=== PATIENT | female | born 1985 | race Two or more races ===

== ENCOUNTER 2018-06-02 19:54 | Emergency (ER) | payer OTHER ==
[~2018-06-02] VITALS: Ht 162.6 cm; Wt 71.2 kg
[~2018-06-02 19:54] MED LIST: LOP100 PO
[2018-06-02 20:08] VITALS: Ht 162.6 cm; Wt 71.2 kg
[2018-06-02 21:17] LABS: BASOPHIL % 0.2 % (0-2); PLATELET COUNT 250 x10^3mcL (130-400); RED CELL DISTRIBUTION WIDTH 14.2 % (11.5-14.5)
[2018-06-02 21:26] LABS: ALBUMIN 3.4 g/dL (3.4-5.0); ALKALINE PHOSPHATASE 83 U/L (46-116); ALT/SGPT 61 U/L (14-59); AST/SGOT 40 U/L (15-37); BILIRUBIN TOTAL 0.6 mg/dL (0.20-1.00); CALCIUM 8.1 mg/dL (8.5-10.1); CARBON DIOXIDE 31.9 mmol/L (21-32); CHLORIDE SERUM 101 mmol/L (98-107); CREATININE SERUM 0.6 mg/dL (0.6-1.0); GFR1 > 60 mL/min; GLUCOSE SERUM 89 mg/dL (74-106); SODIUM SERUM 141 mmol/L (136-145); TOTAL PROTEIN, SERUM 7.5 g/dL (6.4-8.2)
[2018-06-02 21:29] LABS: POTASSIUM SERUM 2.8 mmol/L (3.5-5.1)
[2018-06-02 23:07] VITALS: BP 140/85
== END 2018-06-02 23:07 | disposition home or self-care (01) ==
LOC: ED 19:54
PROVIDERS: Emergency Medicine
DX: E87.6 Hypokalemia (principal); R07.89 Other chest pain; I10 Essential (primary) hypertension
CPT/HCPCS: 36415

== ENCOUNTER 2018-07-05 20:16 | Emergency (ER) | payer OTHER ==
[~2018-07-05] VITALS: Ht 162.6 cm; Wt 65.8 kg
[2018-07-05 20:37] VITALS: Ht 162.6 cm; Wt 65.8 kg
[2018-07-05 22:35] VITALS: BP 146/100
== END 2018-07-05 22:35 | disposition home or self-care (01) ==
LOC: ED 20:16
DX: S46.911A Strain of unspecified muscle, fascia and tendon at shoulder and upper arm level, right arm, initial encounter (principal); I10 Essential (primary) hypertension; V49.9XXA Car occupant (driver) (passenger) injured in unspecified traffic accident, initial encounter; Y93.I9 Activity, other involving external motion; Y92.488 Other paved roadways as the place of occurrence of the external cause; Y99.8 Other external cause status
CPT/HCPCS: J1885

== ENCOUNTER 2018-11-03 12:11 | Emergency (ER) | payer OTHER ==
[~2018-11-03] VITALS: Ht 162.6 cm; Wt 72.6 kg
[2018-11-03 14:02] VITALS: BP 130/88
== END 2018-11-03 14:02 | disposition home or self-care (01) ==
LOC: ED 12:11
DX: L03.317 Cellulitis of buttock (principal); I10 Essential (primary) hypertension
CPT/HCPCS: J0696

== ENCOUNTER 2019-02-21 08:38 | Emergency (ER) | payer OTHER ==
[~2019-02-21] VITALS: Ht 165.1 cm; Wt 74.8 kg
[2019-02-21 09:13] VITALS: Ht 165.1 cm; Wt 74.8 kg
[2019-02-21 11:41] VITALS: BP 135/88
== END 2019-02-21 11:41 | disposition home or self-care (01) ==
LOC: ED 08:38
DX: J06.9 Acute upper respiratory infection, unspecified (principal); I10 Essential (primary) hypertension

== ENCOUNTER 2019-05-23 02:14 | Emergency (ER) | payer OTHER ==
[~2019-05-23] VITALS: Ht 165.1 cm; Wt 76.7 kg
[2019-05-23 02:17] VITALS: Ht 165.1 cm; Wt 76.7 kg
[2019-05-23 04:25] LABS: BASOPHIL % 0.5 % (0-2); PLATELET COUNT 301 x10^3mcL (130-400); RED CELL DISTRIBUTION WIDTH 14.2 % (11.5-14.5)
[2019-05-23 04:33] LABS: AMPHETAMINE QUAL UR NONE DETECTED (See below)
[2019-05-23 04:39] LABS: ALBUMIN 3.9 g/dL (3.4-5.0); ALKALINE PHOSPHATASE 77 U/L (46-116); ALT/SGPT 26 U/L (14-59); AST/SGOT 16 U/L (15-37); BILIRUBIN TOTAL 0.53 mg/dL (0.20-1.00); CALCIUM 8.9 mg/dL (8.5-10.1); CARBON DIOXIDE 29.8 mmol/L (21-32); CHLORIDE SERUM 103 mmol/L (98-107); CREATININE SERUM 0.6 mg/dL (0.6-1.0); GFR1 > 60 mL/min; GLUCOSE SERUM 103 mg/dL (74-106); MAGNESIUM 2.3 mg/dL (1.8-2.4); SODIUM SERUM 143 mmol/L (136-145); TRIGLYCERIDES 108 mg/dL (<150)
[2019-05-23 04:40] LABS: CHOLESTEROL 233 mg/dL (<200); CHOLESTEROL/HDL RATIO 3.1; HDL CHOLESTEROL 74 mg/dL (40-60); TOTAL PROTEIN, SERUM 8.4 g/dL (6.4-8.2)
[2019-05-23 04:41] LABS: POTASSIUM SERUM 2.4 mmol/L (3.5-5.1)
[2019-05-23 04:45] LABS: T3 TOTAL 1.28 ng/mL
[2019-05-23 04:46] LABS: FREE T4 1.05 ng/dL (0.76-1.46); FREE THYROXINE INDEX 3.4 ug/dL (1.4-4.5); T4(THYROXINE) 10.3 ug/dL (4.7-13.3)
[2019-05-23 05:50] VITALS: BP 116/85
== END 2019-05-23 05:50 | disposition home or self-care (01) ==
LOC: ED 02:14
PROVIDERS: Emergency Medicine
DX: E87.6 Hypokalemia (principal); R00.2 Palpitations; I10 Essential (primary) hypertension
CPT/HCPCS: 36415; 84439; Q0092

== ENCOUNTER 2019-05-30 12:20 | Inpatient (IN) | payer OTHER ==
[~2019-05-30] VITALS: Ht 165.1 cm; Wt 75.4 kg
[2019-05-30 12:33] VITALS: Ht 165.1 cm; Wt 75.4 kg
--- NOTE | 2019-05-30 12:34 | NUR ---
EKG IN PROGRESS
--- NOTE | 2019-05-30 12:47 | NUR ---
PT BROUGHT IN BY MOTHER WITH C/O CP. PT HAS HX OF HIGH BP. AT BEDSIDE PT IS AAOX4. RESPS E/U. SKIN IS PINK, WARM AND DRY. PERRLA. PT PLACED ON MONITOR. BED RAILS UP X1 FOR SAFETY. PT ORIENTED TO ROOM, USE OF CALL LEWIS AND BED IN LOWEST POSITION. PT IS CALM AND COOPERATIVE. PT AMBULATED FROM LOBBY TO ED WITH STEADY GAIT. PT AWAITING MSE.
--- NOTE | 2019-05-30 13:45 | NUR ---
PT RESTING IN POSITION OF COMFORT. NO ACUTE STRESS NOTED AT THIS MOMENT. RESPS E/U, SKIN IS PINK, WARM AND DRY. PT CALM AND COOPERATIVE.
[2019-05-30 13:47] LABS: ALBUMIN 3.8 g/dL (3.4-5.0); ALKALINE PHOSPHATASE 66 U/L (46-116); ALT/SGPT 24 U/L (14-59); AST/SGOT 15 U/L (15-37); BILIRUBIN TOTAL 0.7 mg/dL (0.20-1.00); CALCIUM 8.8 mg/dL (8.5-10.1); CARBON DIOXIDE 32.4 mmol/L (21-32); CHLORIDE SERUM 105 mmol/L (98-107); CREATININE SERUM 0.6 mg/dL (0.6-1.0); GFR1 > 60 mL/min; GLUCOSE SERUM 122 mg/dL (74-106); SODIUM SERUM 141 mmol/L (136-145); TOTAL PROTEIN, SERUM 7.8 g/dL (6.4-8.2)
[2019-05-30 13:49] LABS: POTASSIUM SERUM 2.4 mmol/L (3.5-5.1)
[2019-05-30 13:53] LABS: BASOPHIL % 0.4 % (0-2); PLATELET COUNT 283 x10^3mcL (130-400); RED CELL DISTRIBUTION WIDTH 14.1 % (11.5-14.5)
[2019-05-30 15:21] LABS: MAGNESIUM 2.3 mg/dL (1.8-2.4); PHOSPHOROUS 2.4 mg/dL (2.5-4.9)
[2019-05-30 15:22] LABS: CHOLESTEROL/HDL RATIO 3.1
--- NOTE | 2019-05-30 15:50 | NUR ---
HAND-OFF REPORT TO RN BRISEYDA TO ASSUME CARE FOR PT.
--- NOTE | 2019-05-30 16:26 | NUR ---
RECEIVED PATIENT FROM ED VIA [employer]. PATIENT IS STABLE, ALER T AND ORIENTED X4. NO APPARENT SIGNS OF PAIN, SOB, OR RESPORATORY DISTRESS. PATIENT DENIES CHEST PAIN AT THIS TIME. PATIENT STATES INTERMITENT CHEST PAIN, NONE AT THIS TIME. IV TO RIGHT AC INFUSING WELL NO EDEMA OR ERYTHEMA NOTED AT SITE. PATIENT ORIENTED TO ROOM. QUESTIONS AND CONCERNS ADDRESSED. SAFETY PRECUTIONS IN PLACE.
--- NOTE | 2019-05-30 16:34 | NUR ---
MD CORDERO AT BEDSIDE.
[2019-05-30 16:58] VITALS: BP 136/90
--- NOTE | 2019-05-30 18:57 | NUR ---
PATIENT IS STABLE NO APPARENT SIGNS OF PAIN, SOB, OR RESPIRATORY DISTRESS. PATIENT RESTING COMFORTABLY IN BED. ON THE PHONE. DENIES CHEST PAIN, OR PRESSURE. IV TO RIGHT AC INFUSING WELL. NO EDEMA OR ERYTHEMA NOTED AT SITE. CALL LIGHT AND PHONE WITHIN REACH. BED IN LOW POSITION. QUESTIONS AND CONCERNS ADDRESSED. SAFETY PRECAUTIONS IN PLACE. WILL ENDORSE CARE TO PUBLIC RELATIONS ACCOUNT EXECUTIVE NURSE.
--- NOTE | 2019-05-30 19:20 | NUR ---
RECIEVED PT FROM DAY SHIFT RN. PT IS ALERT AND ORIENTED TO PERSON PLACE TIME AND SITUATION AND IS CURRENTLY RESTING IN BED AND ABLE TO FOLLOW COMMANDS. PT DENIES CHEST PAIN OR SHORTNESS OF BREATH ON ROOM AIR AT THIS TIME. TELE #[address] BREATHING IS EVEN AND UNLABORED. PT IS AMBULATORY AND IS ABLE TO USE THE RESTROOM INDEPENDENTLY. THERE IS A RAC IV 24G THAT IS CLEAN DRY AND INTACT. K RIDER COMPLETED. NS RUNNING AT 100M/HR. INSTRUCTED PT TO CALL IF SHE EXPERIENCES SHORTNESS OF BREATH OR CHEST PAIN. SAFETY MEASURES ARE IN PLACE. BED IS IN THE LOWEST POSITION. CALL LIGHT IS WITHIN REACH. WILL CONTINUE TO MONITOR.
--- NOTE | 2019-05-30 19:25 | NUR ---
ENDORSED CARE TO NIGHT SHIF NURSE JACY.
[2019-05-30 21:20] VITALS: BP 136/94
--- NOTE | 2019-05-31 02:04 | NUR ---
PT RESTING IN BED WITH EYES CLOSED. NO SIGNIFICANT CHANGES NOTED. NO DISTRESS NOTED. BREATHING EVEN AND UNLABORED.WILL CONTINUE TO MONITOR.
--- NOTE | 2019-05-31 05:10 | NUR ---
PT SLEPT THROUGHOUT THE NIGHT. NO COMPLAINTS OF PAIN, SHORTNESS OF BREATH, OR CHEST PAIN. PT CURRENTLY RESTING IN BED WITH EYES CLOSED NO USE OF ACCESSORY MUSCLES OR LABORED BREATHING. NO SIGNIFICANT CHANGES NOTED THROUGHOUT THE SHIFT. SAFETY MEASURES ARE IN PLACE. CALL LIGHT IS WITHIN REACH. WILL ENDORSE CONTINUITY OF CARE TO THE DAY SHIFT RN.
[2019-05-31 05:52] VITALS: BP 141/98
[2019-05-31 06:12] LABS: BASOPHIL % 0.4 % (0-2); PLATELET COUNT 260 x10^3mcL (130-400); RED CELL DISTRIBUTION WIDTH 14.5 % (11.5-14.5)
[2019-05-31 06:19] LABS: CALCIUM 8.4 mg/dL (8.5-10.1); CARBON DIOXIDE 29.5 mmol/L (21-32); CHLORIDE SERUM 108 mmol/L (98-107); CREATININE SERUM 0.5 mg/dL (0.6-1.0); GFR1 > 60 mL/min; GLUCOSE SERUM 91 mg/dL (74-106); MAGNESIUM 2.1 mg/dL (1.8-2.4); PHOSPHOROUS 3.4 mg/dL (2.5-4.9); POTASSIUM SERUM 3.3 mmol/L (3.5-5.1); SODIUM SERUM 144 mmol/L (136-145)
--- NOTE | 2019-05-31 07:05 | NUR ---
RECEIVED PT FROM NIGHT NURSE. PT IS LAYING DOWN IN BED WITH HOB UP. PT LOOKS TO BE IN NO ACUTE DISTRESS AND DENIES ANY PAIN AT THIS TIME. IV SITE PATENT WITH NO SIGNS OF ERYTHEMA OR SWELLING WITH IV FLUIDS INFUSING. TELE MONITOR 24 PRESENT. BED IN LOWEST POSITION, CALL LIGHT WITHIN REACH. WILL CONTINUE TO MONITOR.
[2019-05-31 08:34] VITALS: BP 133/90
[2019-05-31 12:32] LABS: T3 TOTAL 1.29 ng/mL
[2019-05-31 12:34] LABS: FREE T4 1.07 ng/dL (0.76-1.46); FREE THYROXINE INDEX 2.6 ug/dL (1.4-4.5); T4(THYROXINE) 8.2 ug/dL (4.7-13.3)
[2019-05-31 12:39] VITALS: BP 124/86
--- NOTE | 2019-05-31 15:50 | NUR ---
PT IS ASKING WHEN SHE WILL BE GOING HOME, PT IS REQUESTING TO BE ABLE TO GO HOME TONIGHT. PAGED DR. CORDERO, AND STATED HE WILL BE GOING IN TO TALK WITH PT ABOUT PLAN.
--- NOTE | 2019-05-31 16:00 | NUR ---
PT AMBULATING AROUND THE UNIT. PT DENIES ANY SOB OR WEAKNESS WHEN WALKING. PT LOOKS TO BE IN NO ACUTE DISTRESS AT THIS TIME. WILL CONTINUE TO MONITOR.
[2019-05-31 16:20] VITALS: BP 130/94
--- NOTE | 2019-05-31 18:39 | NUR ---
PT IS LAYING DOWN IN BED WITH HOB UP TALKING ON THE PHONE. PT LOOKS TO BE IN NO ACUTE DISTRESS AT THIS TIME AND DENIES ANY PAIN. RESPIRATIONS EVEN AND UNLABORED ON ROOM AIR. IV SITE PATENT WITH NO SIGNS OF ERYTHEMA OR SWELLING WITH IV FLUIDS INFUSING. BED IN LOWEST POSITION, CALL LIGHT WITHIN REACH. WILL ENDORSE TO ONCOMING SHIFT.
--- NOTE | 2019-05-31 19:30 | NUR ---
RECEIVED REPORT FROM AM NURSE. PT IN BED WITH FAMILY AT BEDSIDE. PT AAOX4, ABLE TO MAKE NEEDS KNOWN. ON TELE#24 NSR, DENIES CP/PRESSURE AT THIS TIME. NO ACUTE DISTRESS NOTED. PALPABLE PULSES TO BLE. NO EDEMA NOTED. LUNG SOUNDS CTA ON RA. ABD SOFT AND NONDISTENED. ACTIVE BOWEL SOUNDS X4 QUAD. LAST BM 05/30/19. VOIDS FREELY BRP.GENRALIZED WEAKNESS. AMBULATORY. NS RUNNING AT 100ML/HR TO RAC. SITE FREE FROM REDNESS AND SWELLING. BED AT LOWEST SETTING. SIDE RAILS X2 UP. CALL LIGHT WITHING REACH. WILL CONTINUE TO MONITOR.
[2019-05-31 21:19] VITALS: BP 121/82
--- NOTE | 2019-06-01 00:04 | NUR ---
PT LAYING IN BED WITH EYES CLOSED. BREATHING EVEN AND UNLABORED ON RA. NO ACUTE DISTRESS NOTED. BED AT LOWEST SETTING. SIDE RAILS X2 UP. CALL LIGHT WITHING REACH. WILL CONTINUE TO MONITOR.
--- NOTE | 2019-06-01 05:04 | NUR ---
PT SLEPT WELL THROUGHOUT THE NIGHT. BREATHING EVEN AND UNLABORED ON RA. NO ACUTE DISTRESS NOTED. NO CP/PRESSURE DURING NIGHT. ALL NEEDS ASSESSED AND ATTENDED TO. NS RUNNING TO RAC. SITE FREE FROM REDNESS AND SWELLING. BED AT LOWEST SETTING. SIDE RAILS X2 UP. CALL LIGHT WITHING REACH. WILL ENDORSE CARE TO AM NURSE.
[2019-06-01 05:17] VITALS: BP 122/75
[2019-06-01 06:05] LABS: BASOPHIL % 0.5 % (0-2); PLATELET COUNT 270 x10^3mcL (130-400)
[2019-06-01 06:25] LABS: CALCIUM 8.8 mg/dL (8.5-10.1); CARBON DIOXIDE 30.1 mmol/L (21-32); CHLORIDE SERUM 106 mmol/L (98-107); CREATININE SERUM 0.6 mg/dL (0.6-1.0); GFR1 > 60 mL/min; GLUCOSE SERUM 86 mg/dL (74-106); MAGNESIUM 2.2 mg/dL (1.8-2.4); SODIUM SERUM 144 mmol/L (136-145)
[2019-06-01 07:28] LABS: POTASSIUM SERUM 2.9 mmol/L (3.5-5.1)
--- NOTE | 2019-06-01 07:49 | NUR ---
REPORT TAKEN FROM BOTTLE WASHING MACHINE OPERATOR NURSE AT THE BEDSIDE, PT AWAKE AND ALERT, DENIED CP OR SOB. K LEVEL REPORTED BY LAB TO NURSE 2.9 AT 0730, DR. CORDERO PAGED AT THAT TIME TO REPORT, NO ANSWER OR CALL BACK OF YET. WILL CONTINUE TO MONITOR.
[2019-06-01 09:34] VITALS: BP 133/91
[2019-06-01 12:56] VITALS: BP 142/93
[2019-06-01 16:44] VITALS: BP 138/92
[2019-06-01 17:50] VITALS: BP 138/92
--- NOTE | 2019-06-01 18:46 | NUR ---
IV DC FROM RIGHT AC WITH CATH INTACT, PT TOLERATED WELL, BLEEDING CONTROLLED, SITE WRAPPED WITH GUAZE AND COBAN, PT ADVISED TO CALL NURSE WHEN HER RIDE ARRIVES. PT SIGNED DC PAPER WORK, SCRIPT GIVEN TO PATIENT WITH PAPERWORK
== END 2019-06-01 18:55 | disposition home or self-care (01) | DRG 756 ==
LOC: ED 12:20 → DU 14:47 → MU 14:47 → DU 15:57 → MU 06-01 15:11
PROVIDERS: Emergency Medicine; ADMIT Internal Medicine
DX: F41.9 Anxiety disorder, unspecified (principal); E83.39 Other disorders of phosphorus metabolism; I10 Essential (primary) hypertension; E87.6 Hypokalemia; E78.5 Hyperlipidemia, unspecified; Z98.891 History of uterine scar from previous surgery; Z82.49 Family history of ischemic heart disease and other diseases of the circulatory system; Z83.3 Family history of diabetes mellitus
CPT/HCPCS: 84439; G0378; J2060; J3480; J7030

== ENCOUNTER 2019-09-12 02:49 | Emergency (ER) | payer OTHER ==
[~2019-09-12] VITALS: Ht 162.6 cm; Wt 75.8 kg
[2019-09-12 02:53] VITALS: Ht 162.6 cm; Wt 75.8 kg
[2019-09-12 03:50] LABS: BASOPHIL % 0.4 % (0-2); PLATELET COUNT 255 x10^3mcL (130-400); RED CELL DISTRIBUTION WIDTH 13.7 % (11.5-14.5)
[2019-09-12 04:01] LABS: CALCIUM 8.5 mg/dL (8.5-10.1); CARBON DIOXIDE 28.8 mmol/L (21-32); CHLORIDE SERUM 106 mmol/L (98-107); CREATININE SERUM 0.6 mg/dL (0.6-1.0); GFR1 > 60 mL/min; GLUCOSE SERUM 109 mg/dL (74-106); POTASSIUM SERUM 3.3 mmol/L (3.5-5.1); SODIUM SERUM 141 mmol/L (136-145)
[2019-09-12 04:04] LABS: ALBUMIN 3.7 g/dL (3.4-5.0); ALKALINE PHOSPHATASE 75 U/L (46-116); ALT/SGPT 24 U/L (14-59); AST/SGOT 21 U/L (15-37); BILIRUBIN TOTAL 0.52 mg/dL (0.20-1.00); TOTAL PROTEIN, SERUM 7.9 g/dL (6.4-8.2); TRIGLYCERIDES 69 mg/dL (<150)
[2019-09-12 04:05] LABS: CHOLESTEROL 209 mg/dL (<200); CHOLESTEROL/HDL RATIO 2.8; HDL CHOLESTEROL 74 mg/dL (40-60)
[2019-09-12 05:57] VITALS: BP 108/68
== END 2019-09-12 05:57 | disposition home or self-care (01) ==
LOC: ED 02:49
PROVIDERS: Emergency Medicine
DX: E87.6 Hypokalemia (principal); R00.2 Palpitations; I10 Essential (primary) hypertension
CPT/HCPCS: J7030

== ENCOUNTER 2019-10-22 04:01 | Emergency (ER) | payer OTHER ==
[~2019-10-22] VITALS: Ht 162.6 cm; Wt 74.4 kg
[2019-10-22 04:06] VITALS: BP 146/98; Ht 162.6 cm; Wt 74.4 kg
== END 2019-10-22 06:08 | disposition left against medical advice (07) ==
LOC: ED 04:01
DX: Z53.21 Procedure and treatment not carried out due to patient leaving prior to being seen by health care provider (principal)

== ENCOUNTER 2019-11-05 21:04 | Emergency (ER) | payer OTHER ==
[~2019-11-05] VITALS: Ht 162.6 cm; Wt 75.3 kg
[2019-11-05 21:36] VITALS: Ht 162.6 cm; Wt 75.3 kg
[2019-11-05 22:48] LABS: BASOPHIL % 0.2 % (0-2); PLATELET COUNT 205 x10^3mcL (130-400); RED CELL DISTRIBUTION WIDTH 13.8 % (11.5-14.5)
[2019-11-05 23:10] LABS: ALBUMIN 3.9 g/dL (3.4-5.0); ALKALINE PHOSPHATASE 67 U/L (46-116); ALT/SGPT 34 U/L (14-59); AST/SGOT 23 U/L (15-37); CALCIUM 8.6 mg/dL (8.5-10.1); CARBON DIOXIDE 28.5 mmol/L (21-32); CHLORIDE SERUM 104 mmol/L (98-107); CREATININE SERUM 0.6 mg/dL (0.6-1.0); GFR1 > 60 mL/min; GLUCOSE SERUM 96 mg/dL (74-106); POTASSIUM SERUM 3.2 mmol/L (3.5-5.1); SODIUM SERUM 140 mmol/L (136-145)
[2019-11-05 23:35] VITALS: BP 124/88
== END 2019-11-05 23:56 | disposition home or self-care (01) ==
LOC: ED 21:04
PROVIDERS: Emergency Medicine
DX: J06.9 Acute upper respiratory infection, unspecified (principal); E87.6 Hypokalemia; I10 Essential (primary) hypertension; R19.7 Diarrhea, unspecified

== ENCOUNTER 2020-04-24 19:23 | Inpatient (IN) | payer OTHER ==
[~2020-04-24] VITALS: Ht 165.1 cm; Wt 72.6 kg
[2020-04-24 19:29] VITALS: Ht 165.1 cm; Wt 72.6 kg
[2020-04-24 20:45] LABS: BASOPHIL % 0.2 % (0-2); PLATELET COUNT 259 x10^3mcL (130-400); RED CELL DISTRIBUTION WIDTH 13.9 % (11.5-14.5)
[2020-04-24 21:00] LABS: CALCIUM 8.7 mg/dL (8.5-10.1); CARBON DIOXIDE 25.6 mmol/L (21-32); CHLORIDE SERUM 102 mmol/L (98-107); CREATININE SERUM 0.9 mg/dL (0.6-1.0); GFR1 > 60 mL/min; GLUCOSE SERUM 101 mg/dL (74-106); SODIUM SERUM 139 mmol/L (136-145)
[2020-04-24 21:13] LABS: ALKALINE PHOSPHATASE 77 U/L (46-116); ALT/SGPT 56 U/L (14-59); AST/SGOT 41 U/L (15-37); BILIRUBIN TOTAL 0.6 mg/dL (0.20-1.00); FREE T4 1.31 ng/dL (0.76-1.46); TOTAL PROTEIN, SERUM 8.2 g/dL (6.4-8.2)
[2020-04-24] MEDS ORDERED: SPIRONOLACTONE25 MG PO (22:51)
[2020-04-24] MEDS ORDERED: ASPIRIN ADULT L81 M3 PO (22:52)
[2020-04-24] MEDS ORDERED: AMLODIPINE BESY PO (23:40)
[2020-04-24 23:59] LABS: CHOLESTEROL/HDL RATIO 3.1
[2020-04-25 00:08] VITALS: BP 142/98
[2020-04-25 05:51] VITALS: BP 122/84
[2020-04-25 05:57] LABS: UA SPECIFIC GRAVITY 1.015 (1.005-1.035); microscopic required? YES; urine erythrocyte TRACE (NEGATIVE)
[2020-04-25 06:04] LABS: AMPHETAMINE QUAL UR NONE DETECTED (See below)
[2020-04-25 06:55] LABS: BASOPHIL % 0.2 % (0-2); PLATELET COUNT 224 x10^3mcL (130-400); RED CELL DISTRIBUTION WIDTH 14.6 % (11.5-14.5)
[2020-04-25 07:07] LABS: CHLORIDE SERUM 104 mmol/L (98-107); CREATININE SERUM 0.6 mg/dL (0.6-1.0); GFR1 > 60 mL/min; GLUCOSE SERUM 93 mg/dL (74-106); MAGNESIUM 2.2 mg/dL (1.8-2.4); PHOSPHOROUS 3.3 mg/dL (2.5-4.9); POTASSIUM SERUM 3.4 mmol/L (3.5-5.1); SODIUM SERUM 139 mmol/L (136-145)
[2020-04-25 09:03] VITALS: BP 123/85
[2020-04-25] MEDS ORDERED: DICYCLOMIN10 MG/5 ML PO (11:06)
[2020-04-25] MEDS ORDERED: ALD25 PO (11:06)
[2020-04-25] MEDS ORDERED: HYDROXYZINE HYD25 MG PO ×2 (11:07→11:08)
[2020-04-25 12:32] VITALS: BP 143/99
== END 2020-04-25 13:52 | disposition home or self-care (01) | DRG 254 ==
LOC: ED 19:23 → DU 22:26
PROVIDERS: Student in an Organized Health Care Education/Training Program; ADMIT Internal Medicine; ATTEND Internal Medicine
DX: K58.9 Irritable bowel syndrome, unspecified (principal); E83.51 Hypocalcemia; I10 Essential (primary) hypertension; E78.5 Hyperlipidemia, unspecified; E87.6 Hypokalemia; R00.0 Tachycardia, unspecified; F41.9 Anxiety disorder, unspecified; Z79.82 Long term (current) use of aspirin; Z82.49 Family history of ischemic heart disease and other diseases of the circulatory system; Z83.3 Family history of diabetes mellitus; Z20.828 Contact with and (suspected) exposure to other viral communicable diseases
CPT/HCPCS: 83880; 84439; G0378; J3480; J7030; J7040; Q0092; U0003-CS

== ENCOUNTER 2020-05-29 11:39 | Emergency (ER) | payer OTHER ==
[~2020-05-29 11:39] MED LIST changes: +ALD25 PO; +AMLODIPINE BESY PO; +ASPIRIN ADULT L81 M3 PO; +DICYCLOMIN10 MG/5 ML PO; +HYDROXYZINE HYD25 MG PO; +SPIRONOLACTONE25 MG PO
== END 2020-05-29 12:48 | disposition left against medical advice (07) ==
LOC: ED 11:39
DX: Z53.21 Procedure and treatment not carried out due to patient leaving prior to being seen by health care provider (principal)

== ENCOUNTER 2020-12-23 02:50 | Emergency (ER) | payer OTHER ==
[~2020-12-23] VITALS: Ht 170.2 cm; Wt 73.5 kg
[2020-12-23 03:02] VITALS: Ht 170.2 cm; Wt 73.5 kg
[2020-12-23 04:01] LABS: BASOPHIL % 1.9 % (0.2-1.3); PLATELET COUNT 222 x10^3mcL (179-408)
[2020-12-23 04:13] LABS: CARBON DIOXIDE 25.3 mmol/L (21-32); CHLORIDE SERUM 104 mmol/L (98-107); CREATININE SERUM 0.8 mg/dL (0.6-1.0); GFR1 > 60 mL/min; GLUCOSE SERUM 118 mg/dL (74-106); POTASSIUM SERUM 3.5 mmol/L (3.5-5.1); SODIUM SERUM 141 mmol/L (136-145)
[2020-12-23 04:20] LABS: ALKALINE PHOSPHATASE 58 U/L (46-116); ALT/SGPT 21 U/L (14-59); AST/SGOT 16 U/L (15-37); BILIRUBIN TOTAL 0.65 mg/dL (0.20-1.00)
[2020-12-23 05:25] VITALS: BP 131/93
== END 2020-12-23 05:25 | disposition home or self-care (01) ==
LOC: ED 02:50
PROVIDERS: Emergency Medicine
DX: I10 Essential (primary) hypertension (principal); R42 Dizziness and giddiness